=== PATIENT | female | born 1940 | race Caucasian/White ===

== ENCOUNTER 2017-06-09 02:42 | Inpatient (IN) | payer OTHER ==
[2017-06-09] MEDS ORDERED: NS 1,000 ML IV ONE ×3 (02:51→05:19)
[2017-06-09] MEDS ORDERED: ONDANSETRON 4 MG/2 ML VIAL IVP ONE ×2 (02:51→03:38)
--- NOTE | 2017-06-09 02:59 | CPEKG ---
Heart Rate: 58 RR Interval: 1034 P-R Interval: 128 QRSD Interval: 98 QT Interval: 472 QTC Interval: 464 P [place]: 74 QRS [place]: -34 T Wave [place]: 30 EKG Severity - OTHERWISE NORMAL ECG - EKG Impression: SINUS RHYTHM EKG Impression: LEFT AXIS DEVIATION Electronically Signed By: Joaquina Correa 09-Jun-2017 05:26:37
--- NOTE | 2017-06-09 03:00 | EDPHY ---
H & P Stated Complaint: Epigatric, umbilical abdo pain, nausea since 0. Time Seen by Provider: 06/09/17 02:59 HPI/ROS: Chief complaint: Epigastric pain and vomiting History of present illness: This 77-year-old female with past medical history of hyperlipidemia presents to the emergency department tonight complaining of severe epigastric pain which radiates downward to the suprapubic region and through to her mid back since 10:15 p.m. last evening. She states that she felt fine before going to bed at 9:30 p.m.. The pain woke her from her sleep. At onset, she rated the pain at 8/10 and describes it as an ache which is constant but with spasms of more severe pain. She got up and paced the floor and took 4 Tums without significant relief. The pain eventually increased to 10 /10 and she asked her daughter to bring her to the emergency department. She cannot identify any aggravating or alleviating factors. On the way to the emergency department she started vomiting and has vomited approximately 3 times. There is food particles in the emesis. She states she had chicken, asparagus and salad for dinner. No one else got sick. She had a small bowel movement prior to arriving in the emergency department and states she has felt constipated with small caliber stool for the last 3 weeks. She denies lightheadedness, fever, chills, cough, sore throat or ear pain, chest pain, neck pain, jaw pain, or arm pain. She has chronic left shoulder pain due to an old rotator cuff injury and this pain has been worse for the last week. She has an appointment for her shoulder next week. She denies dysuria or hematuria. The patient denies any prior episodes of this sort but she did present to our emergency department on 03/07/2015 with complaints of chest pain. The workup in the emergency department was negative and the patient states that she had a stress echo when she returned to her home state [facility] which was negative. REVIEW OF SYSTEMS: Constitutional: No fever, no chills. Eyes: No discharge. ENT: No sore throat. Respiratory: No cough, no shortness of breath. Cardiac: No chest pain, no palpitations. Gastrointestinal: See HPI. Genitourinary: No hematuria. Musculoskeletal: No calf swelling, muscle aches. Skin: No rashes. +diaphoresis with pain and vomiting. Neurological: No headache. Source: Patient, Family (daughter) Exam Limitations: No limitations - Personal History Current Tetanus/Diphtheria Vaccine: Yes Current Tetanus Diphtheria and Acellular Pertussis (TDAP): Yes Tetanus Vaccine Date: 2015 - Medical/Surgical History PMH: PMH: includes hyperlipidemia. Denies cardiac history. COLONOSCOPY summer showed benign polyps per patient. PSH: Includes appendectomy, tonsillectomy, bilateral total knee replacements. FH: Mother in her 60s from ovarian cancer, father in his late 70s from testicular cancer. No premature coronary artery disease. Allergies to penicillin Medications include atorvastatin, alendronate, biotin, Celexa, vitamin D3, calcium, multivitamin, and magnesium. Hx Asthma: No Hx Chronic Respiratory Disease: No Hx Diabetes: No Hx Cardiac Disease: No Hx Renal Disease: No Hx Cirrhosis: No Hx Alcoholism: No Hx HIV/AIDS: No Hx Splenectomy or Spleen Trauma: No Other PMH: high cholesterol, arthritis, appy, tonsillectomy, left breast biopsies, nose biopsy. - Family History Significant Family History: Cancer - Social History Smoking Status: Never smoked Alcohol Use: None Drug Use: None Additional Social History: Patient denies tobacco products stating she only smoked in high school to be cool, she has occasional wine and her last drink was a couple weeks ago, she denies marijuana or other drug use. She is here visiting her daughter from [place], [place]. Her Primary Care Provider in [place] is Dr. Hi Snyder. - Physical Exam Exam: General Appearance: Alert, moderate to severe distress. Eyes: Pupils equal and round no pallor or injection. ENT, Mouth: Mucous membranes are moist. No pharyngeal erythema or exudate. Respiratory: There are no retractions, lungs are clear to auscultation. Cardiovascular: Regular rate and rhythm. No murmurs, gallops, or rubs. Gastrointestinal: Abdomen is soft, no significant distention. Diffusely tender to palpation, worse in the epigastric region. No pulsatile masses. No guarding or rigidity. Neurological: Awake and alert, sensory and motor exams grossly normal. Skin: Cool and clammy during waves of pain. Musculoskeletal: Neck is supple nontender. No thyromegaly. No JVD. Extremities are symmetrical, full range of motion. No calf pain swelling, warmth , cords or erythema. Psychiatric: Patient is oriented X 3, there is no agitation. DIFFERENTIAL DIAGNOSIS: After history and physical exam differential diagnosis was considered for but not limited to: acute coronary syndrome, AAA, biliary colic, cholecystitis, pancreatitis, bowel obstruction, colitis, gastroenteritis , pyelonephritis Constitutional: Initial Vital Signs Temperature (C) 97.5 F 06/09/17 02:45 Heart Rate 58 L 06/09/17 02:45 Respiratory Rate 20 06/09/17 02:45 Blood Pressure 131/79 H 06/09/17 02:45 O2 Sat (%) 96 06/09/17 02:45 O2 Delivery Mode Room Air Allergies/Adverse Reactions: No Known Allergies Allergy (Unverified 06/09/17 02:52) Home Medications: Medication Instructions Recorded Alendronate Sodium [Fosamax 70 MG 70 mg DAILY 03/07/15 (RX)] Atorvastatin Calcium [Lipitor] 40 mg PO DAILY 03/07/15 Biotin 5,000 mcg PO DAILY 03/07/15 Calcium [HI-ERAN] DAILY 03/07/15 Cholecalciferol Vit D3 [Vitamin D] 1,000 units PO DAILY 03/07/15 Magnesium Oxide [Magnesium] 1 tab DAILY 03/07/15 Multivit with Calcium,Iron,Min 1 tab DAILY 03/07/15 [Multiple Vitamins For Women] Celexa 06/09/17 Medical Decision Making - Diagnostics EKG Interpretation: EKG #1 (0257): NSR, HR 59, LAD. No acute ischemic changes. Similar to EKG dated 03/07/2015. EKG #2 (0438): NSR, HR 62, LAD, baseline artifact. Imaging Results: PA/LAT CXR as read by me: Tortuous aorta, no infiltrate, effusion, pneumothorax , free air. CT Abd/Pelvis w/contrast verbal report by Dr. Chung: Probable low grade small bowel obstruction. Imaging: Discussed imaging studies w/ will call clerk Radiologist (CT Abd/Pelvis), I viewed and interpreted images myself (CXR) ED Course/Re-evaluation: The patient was seen and examined. Vital signs reviewed. Old records reviewed. EKG was performed and showed no acute ischemic changes. CBC showed a slightly elevated white blood cell count. Comprehensive metabolic panel was remarkable only for a slightly low bicarb and elevated glucose. Liver function tests and lipase were normal. Troponin was within normal limits. Lactic acid was elevated at 3.3. UA showed 1+Ketones after fluids. PA and lateral chest x- ray showed no acute abnormality by my read. It was similar to a chest x-ray dated 03/07/15. CT of the abdomen and pelvis with contrast per verbal report showed a probable low grade small bowel obstruction without free air or abscess. No discrete transition point. Please refer to the final dictated report when available. The patient received 2 L of IV fluid. Her pain and nausea were difficult to control. She received 2 doses of Zofran 4 mg IV push. Reglan 5 mg IV push. Fentanyl 25 mcg IV push x2 and morphine 2 mg IV push. She is still having 5/10 abdominal pain. The patient's repeat EKG was similar to her 1st EKG. Repeat troponin was normal. Repeat lactic acid was still elevated but down to 2.4. The patient was discussed with the hospitalist, Dr. Santo. She will be observed on the Med/Surg unit for further evaluation and treatment as indicated. Dr. Santo will consult surgery at his discretion after his evaluation. - Data Points Laboratory Results: Laboratory Results 06/09/17 03:05 06/09/17 03:05 06/09/17 06/09/17 06/09/17 04:28 04:28 04:28 WBC RBC Hgb Hct MCV MCH MCHC RDW Plt Count MPV Neut % (Auto) Lymph % (Auto) Russell % (Auto) Eos % (Auto) Baso % (Auto) Nucleat RBC Rel Count Absolute Neuts (auto) Absolute Lymphs (auto) Absolute Monos (auto) Absolute Eos (auto) Absolute Basos (auto) Absolute Nucleated RBC Immature Gran % Immature Gran # VBG Lactic Acid 2.4 mmol/L H D mmol/L (0.7-2.1) Sodium Potassium Chloride Carbon Dioxide Anion Gap BUN Creatinine Estimated GFR Glucose Calcium Phosphorus Magnesium 1.7 mg/dL mg/dL (1.6-2.3) Total Bilirubin Conjugated Bilirubin Unconjugated Bilirubin AST ALT Alkaline Phosphatase Troponin I < 0.012 ng/mL ng/mL (0.000-0.034) Total Protein Albumin Lipase Urine Color YELLOW Urine Appearance HAZY Urine pH 7.5 (5.0-7.5) Ur Specific [place] 1.010 (1.002-1.030) Urine Protein NEGATIVE (NEGATIVE) Urine Ketones 1+ H (NEGATIVE) Urine Blood TRACE H (NEGATIVE) Urine Nitrate NEGATIVE (NEGATIVE) Urine Bilirubin NEGATIVE (NEGATIVE) Urine Urobilinogen 0.2 EU EU (0.2-1.0) Ur Leukocyte Esterase NEGATIVE (NEGATIVE) Urine RBC NONE SEEN /hpf /hpf (0-3) Urine WBC NONE SEEN /hpf /hpf (0-3) Ur Epithelial Cells NONE SEEN /lpf /lpf (NONE-1+) Urine Mucus TRACE /lpf /lpf (NONE-1+) Urine Glucose NEGATIVE (NEGATIVE) 06/09/17 06/09/17 06/09/17 03:05 03:05 03:05 WBC 12.98 10^3/uL H 10^3/uL (3.80-9.50) RBC 5.32 10^6/uL 10^6/uL (4.18-5.33) Hgb 15.6 g/dL g/dL (12.6-16.3) Hct 44.5 % % (38.0-47.0) MCV 83.6 fL fL (81.5-99.8) MCH 29.3 pg pg (27.9-34.1) MCHC 35.1 g/dL g/dL (32.4-36.7) RDW 12.4 % % (11.5-15.2) Plt Count 250 10^3/uL 10^3/uL (150-400) MPV 9.7 fL fL (8.7-11.7) Neut % (Auto) 83.0 % H % (39.3-74.2) Lymph % (Auto) 11.9 % L % (15.0-45.0) Russell % (Auto) 4.3 % L % (4.5-13.0) Eos % (Auto) 0.3 % L % (0.6-7.6) Baso % (Auto) 0.2 % L % (0.3-1.7) Nucleat RBC Rel Count 0.0 % % (0.0-0.2) Absolute Neuts (auto) 10.76 10^3/uL H 10^3/uL (1.70-6.50) Absolute Lymphs (auto) 1.55 10^3/uL 10^3/uL (1.00-3.00) Absolute Monos (auto) 0.56 10^3/uL 10^3/uL (0.30-0.80) Absolute Eos (auto) 0.04 10^3/uL 10^3/uL (0.03-0.40) Absolute Basos (auto) 0.03 10^3/uL 10^3/uL (0.02-0.10) Absolute Nucleated RBC 0.00 10^3/uL 10^3/uL (0-0.01) Immature Gran % 0.3 % % (0.0-1.1) Immature Gran # 0.04 10^3/uL 10^3/uL (0.00-0.10) VBG Lactic Acid 3.3 mmol/L H mmol/L (0.7-2.1) Sodium 137 mEq/L mEq/L (135-145) Potassium 4.4 mEq/L mEq/L (3.5-5.2) Chloride 101 mEq/L mEq/L (97-110) Carbon Dioxide 21 mEq/l L mEq/l (22-31) Anion Gap 15 mEq/L mEq/L (8-16) BUN 33 mg/dL H mg/dL (7-23) Creatinine 0.9 mg/dL mg/dL (0.6-1.0) Estimated GFR > 60 Glucose 192 mg/dL H mg/dL (70-100) Calcium 10.8 mg/dL H mg/dL (8.5-10.4) Phosphorus 3.0 mg/dL mg/dL (2.5-4.5) Magnesium Total Bilirubin 0.7 mg/dL mg/dL (0.1-1.4) Conjugated Bilirubin 0.3 mg/dL mg/dL (0.0-0.5) Unconjugated Bilirubin 0.4 mg/dL mg/dL (0.0-1.1) AST 23 IU/L IU/L (14-46) ALT 34 IU/L IU/L (9-52) Alkaline Phosphatase 83 IU/L IU/L (38-126) Troponin I < 0.012 ng/mL ng/mL (0.000-0.034) Total Protein 6.9 g/dL g/dL (6.3-8.2) Albumin 4.2 g/dL g/dL (3.5-5.0) Lipase 181 IU/L IU/L (23-300) Urine Color Urine Appearance Urine pH Ur Specific [place] Urine Protein Urine Ketones Urine Blood Urine Nitrate Urine Bilirubin Urine Urobilinogen Ur Leukocyte Esterase Urine RBC Urine WBC Ur Epithelial Cells Urine Mucus Urine Glucose Medications Given: Discontinued Medications Fentanyl (Sublimaze) 25 mcg IVP EDNOW ONE Stop: 06/09/17 03:09 Last Admin: 06/09/17 03:15 Dose: 25 mcg Fentanyl (Sublimaze) 25 mcg IVP EDNOW ONE Stop: 06/09/17 03:35 Last Admin: 06/09/17 03:37 Dose: 25 mcg Sodium Chloride (Ns) 1,000 mls @ 0 mls/hr IV EDNOW ONE; Wide Open PRN Reason: Protocol Stop: 06/09/17 02:52 Last Admin: 06/09/17 03:03 Dose: 1,000 mls Sodium Chloride (Ns) 1,000 mls @ 0 mls/hr IV EDNOW ONE; Wide Open PRN Reason: Protocol Stop: 06/09/17 03:35 Last Admin: 06/09/17 03:37 Dose: 1,000 mls Metoclopramide HCl (Reglan Injection) 5 mg IVP EDNOW ONE Stop: 06/09/17 04:15 Last Admin: 06/09/17 04:33 Dose: 5 mg Morphine Sulfate (Morphine) 2 mg IVP EDNOW ONE Stop: 06/09/17 04:44 Last Admin: 06/09/17 04:53 Dose: Not Given Morphine Sulfate (Morphine) 2 mg IVP EDNOW ONE Stop: 06/09/17 04:52 Last Admin: 06/09/17 04:52 Dose: 2 mg Morphine Sulfate (Morphine) 2 mg IVP EDNOW ONE Stop: 06/09/17 05:11 Last Admin: 06/09/17 05:16 Dose: 2 mg Ondansetron HCl (Zofran) 4 mg IVP EDNOW ONE Stop: 06/09/17 02:52 Last Admin: 06/09/17 03:02 Dose: 4 mg Ondansetron HCl (Zofran) 4 mg IVP EDNOW ONE Stop: 06/09/17 03:39 Last Admin: 06/09/17 03:42 Dose: 4 mg Departure - Departure Disposition: [facility] Inpatient Acute Clinical Impression: Partial small bowel obstruction Condition: Good
[2017-06-09] MEDS ORDERED: fentaNYL 100 MCG/2 ML INJ IVP ONE ×2 (03:08→03:34)
[2017-06-09 03:15] LABS: PLATELET COUNT 250 10^3/uL (150-400)
[2017-06-09] MEDS ORDERED: IOPAMIDOL (ISOVUE-300) 100 ML BTL ONE (03:48)
[2017-06-09] MEDS ORDERED: METOCLOPRAMIDE 10 MG/2 ML VIAL IVP ONE (04:14)
[2017-06-09] MEDS ORDERED: ONDANSETRON DISINTEGRATING 4 MG TAB PO PRN (04:55)
--- NOTE | 2017-06-09 04:55 | CPEKG ---
Heart Rate: 62 RR Interval: 968 P-R Interval: 128 QRSD Interval: 102 QT Interval: 468 QTC Interval: 476 P [place]: 72 QRS [place]: -33 T Wave [place]: 62 EKG Severity - ABNORMAL ECG - EKG Impression: SINUS RHYTHM EKG Impression: LEFT AXIS DEVIATION EKG Impression: NONSPECIFIC T ABNORMALITIES, LATERAL LEADS EKG Impression: Baseline artifact Electronically Signed By: Joaquina Correa 09-Jun-2017 05:26:03
[2017-06-09] MEDS: D5W 1/2 NS 1,000 ML IV SCH ×2 (09:40→18:30)
[2017-06-09] MEDS: ONDANSETRON 4 MG/2 ML VIAL IVP PRN (09:41)
[2017-06-09] MEDS: PROMETHAZINE HCL 25 MG/ML INJ IVP PRN ×3 (10:09→23:07)
[2017-06-09] MEDS: HYDROmorphone HCL/NS 0.5 MG/ML SYR IVP PRN ×2 (10:09→22:59)
[2017-06-09] MEDS ORDERED: NON-FORMULARY NEW DRUG (Loratadine [Claritin] 10 MG) PO PRN (12:44)
--- NOTE | 2017-06-09 14:33 | GHP ---
[f rep st] HISTORY AND PHYSICAL DATE OF ADMISSION: 06/09/2017 The patient is a 77-year-old female with history of remote appendectomy, presents with nausea, vomiti ng, abdominal pain, abdominal distention. She has had some hard, firm bowel movements of late. She had a colonoscopy in the past that was unremarkable other than a couple of polyps. She has not had fever, chills. She has not had cough or shortness of breath. She does not take narc otic pain medicines. She has not had diarrhea. REVIEW OF SYSTEMS: Complete 10-point review of systems conducted negative except as noted in the HPI . PAST MEDICAL HISTORY: 1. Hyperlipidemia. 2. Osteoporosis. 3. Rotator cuff tear. 4. Remote appendectomy. 5. Episode of chest pain for which she had a negative stress echo. ALLERGIES: Penicillins. HOME MEDICATIONS: Alendronate, atorvastatin, calcium carbonate, celecoxib, citalopram, loratadine, m ultivitamin. SOCIAL HISTORY: No tobacco, no alcohol. Lives in [place], his daughter lives here. FAMILY HISTORY: Parents . PHYSICAL EXAMINATION: VITAL SIGNS: Temp 36.8, blood pressure 152/89, pulse 81, breathing 16 times a minute, 95% on 2 L. GENERAL: No acute distress. HEENT: Sclerae anicteric. Oropharynx clear. Mu cous membranes moist. NECK: Supple without lymphadenopathy or JVD. LUNGS: Clear to auscultation b ilaterally. HEART: S1, S2. ABDOMEN: Soft. Bowel sounds are present but hypoactive, mildly disten ded. There is no rebound or guarding. EXTREMITIES: Lower extremities without edema, calves are non tender. SKIN: Without rash. NEUROLOGIC: Exam is nonfocal. LABORATORY DATA: White count 13, hematocrit 45, platelets are 250,000. Venous lactate was 3.3, now 2.4. Sodium 137, potassium 4.1, chloride 101, bicarb 21, BUN 33, creatinine 0.9, glucose 192. Tropo joann less than 0.012 x 2. LFTs normal. UA is reviewed and unremarkable. CT shows possible small bowel obstruction with diverticulosis. Chest x-ray interpreted by me shows no acute cardiopulmonary disease. EKG interpreted by me shows sinus at 58 with normal with left axis deviation, normal intervals, no ST or T-wave changes. I have discussed the case with Dr. Correa of urgent care. ASSESSMENT/PLAN: A 77-year-old female with likely partial small-bowel obstruction. 1. Small bowel obstruction. The patient has probably a partial small-bowel obstruction. She has an exam consistent with this. We will go ahead and follow. We will provide her with n.p.o. except for sips and antiemetics. I do not think she needs an NG tube at this time. 2. Adrenal adenoma outpatient followup. 3. Vomiting. I do not think this is consistent with ACS. She has nonischemic EKG and negative trop onin. 4. Prophylaxis low molecular weight heparin is indicated. 5. Pain. Cautious narcotics. 6. Disposition inpatient. /[id number]/MODL
[2017-06-09] MEDS: CETIRIZINE 10 MG TAB PO SCH (18:31)
[2017-06-10] MEDS: HYDROmorphone HCL/NS 0.5 MG/ML SYR IVP PRN ×5 (02:22→19:09)
[2017-06-10] MEDS: ONDANSETRON 4 MG/2 ML VIAL IVP PRN ×4 (02:30→16:31)
[2017-06-10] MEDS ORDERED: ALENDRONATE SODIUM 70 MG TAB PO SCH (07:00)
[2017-06-10] MEDS: CALCIUM CARBONATE 500 MG TAB PO SCH (09:11)
[2017-06-10] MEDS: CETIRIZINE 10 MG TAB PO SCH (09:12)
[2017-06-10] MEDS: MULTIVITAMINS 1 EACH TAB PO SCH (09:12)
[2017-06-10] MEDS: ENOXAPARIN 40 MG/0.4 ML SYR SC SCH (09:16)
[2017-06-10] MEDS: PROMETHAZINE HCL 25 MG/ML INJ IVP PRN ×2 (09:17→15:19)
[2017-06-10] MEDS: CITALOPRAM 20 MG TAB PO SCH (13:15)
[2017-06-10] MEDS: ATORVASTATIN CALCIUM 40 MG TAB PO SCH (13:16)
--- NOTE | 2017-06-10 13:36 | HOSPPROG ---
Hospitalist Progress Note Assessment/Plan: New pt encounter 77 yo female with SBO, conservative mgmt #SBO -conservative mgmt -NPO, Ice chips, sips of water -NGT -improving conservatively #N/V -antiemetics #abd pain, improving #Hx of open appendectomy at age 10 #Left Adrenal Adenoma per CT imaging, will rec repeat CT scan in 6 months per Radiology Plan: cont conservative mgt will change IVF to NS given Na was 136. check labs in a.m await further improvement prior to advancing diet repeat lactic acid pain mgmt Lovenox for DVT proph Subjective: abd feels better. Still no flatus. NGT in. Objective: Vital Signs Temp Pulse Resp BP Pulse Ox 36.8 C 104 H 17 149/90 H 95 06/10/17 11:50 06/10/17 11:50 06/10/17 11:50 06/10/17 11:50 06/10/17 11:50 06/09/17 06/10/17 06/11/17 05:59 05:59 05:59 Intake Total 3590 1900 Output Total 2475 450 Balance 1115 1450 - Physical Exam Constitutional: no apparent distress Eyes: PERRL, EOMI Ears, Nose, Mouth, Throat: moist mucous membranes, hearing normal Cardiovascular: regular rate and rhythym, no murmur, rub, or gallop, No edema Respiratory: no respiratory distress, no rales or rhonchi, clear to auscultation Gastrointestinal: distension (mild), other (RLQ TTP, hypoactive BS) Genitourinary: no bladder fullness Skin: warm Neurologic: AAOx3 Psychiatric: interacting appropriately, not anxious, not encephalopathic Lymph, Heme, Immunologic: No petechiae ICD10 Worksheet Patient Problems: Problems Problem Status Onset Partial small bowel obstruction Acute
[2017-06-10] MEDS: D5W NS 1,000 ML IV SCH (14:27)
--- NOTE | 2017-06-10 15:57 | ASMTCMCOM ---
CM Note CM Note Notes: Pt is for SBO, is currently NPO. Pt lives in [place]. dghtr lives here and has been bedside. No therapies ordered. CM will follow pt progress for d/c planning. Date Signed: 06/10/2017 03:56 PM Electronically Signed By:HEATHER De La Rosa
--- NOTE | 2017-06-10 16:11 | PDMN ---
Medical Necessity Medical necessity: Change to IP, as of 06/10/17, per MD; los >2 mn for ongoing management of SBO; NG tube in place; admit for further monitoring/workup, IVFs, pain management & antiemetics; per progress note & order 06/10/17
[2017-06-10] MEDS ORDERED: LORazepam 2 MG/ML INJ IVP ONE (18:00)
[2017-06-11 05:02] LABS: PLATELET COUNT 189 10^3/uL (150-400)
[2017-06-11] MEDS: CALCIUM CARBONATE 500 MG TAB PO SCH (08:47)
[2017-06-11] MEDS: CETIRIZINE 10 MG TAB PO SCH (08:48)
[2017-06-11] MEDS: MULTIVITAMINS 1 EACH TAB PO SCH (08:48)
[2017-06-11] MEDS: CITALOPRAM 20 MG TAB PO SCH (08:48)
[2017-06-11] MEDS: ATORVASTATIN CALCIUM 40 MG TAB PO SCH (08:50)
[2017-06-11] MEDS: ENOXAPARIN 40 MG/0.4 ML SYR SC SCH (09:23)
[2017-06-11] MEDS: D5W NS 1,000 ML IV SCH ×2 (10:21→22:31)
--- NOTE | 2017-06-11 14:15 | HOSPPROG ---
Hospitalist Progress Note Assessment/Plan: 77 yo female with SBO, conservative mgmt #SBO, improving -conservative mgmt -NPO, Ice chips, sips of water -NGT clamped -improving conservatively #Leukocytosis, afebrile #Tachycardia, stable #N/V -antiemetics #abd pain, improving #Hx of open appendectomy at age 10 #Left Adrenal Adenoma per CT imaging, will rec repeat CT scan in 6 months per Radiology Plan: cont conservative mgt. she is improving. BS are better. NG is clamped. Abd is not distended. cont NS at 100ml/hr, no e/o of swelling or volume overload check labs in a.m, unclear why she has Leukocytosis. She feels better. she is afebrile. await further improvement prior to advancing diet check KUB pain mgmt Lovenox for DVT proph Subjective: feels better. ambulating in lambert. no flatus yet. NGT is clamped. afebrile Objective: Vital Signs Temp Pulse Resp BP Pulse Ox 36.8 C 104 H 18 126/93 H 92 06/11/17 11:55 06/11/17 11:55 06/11/17 11:55 06/11/17 11:55 06/11/17 11:55 Laboratory Results 06/11/17 04:46 06/11/17 04:46 06/10/17 06/11/17 06/12/17 05:59 05:59 05:59 Intake Total 1200 Output Total 600 200 Balance -600 1000 - Physical Exam Constitutional: no apparent distress Eyes: PERRL, EOMI Ears, Nose, Mouth, Throat: moist mucous membranes Cardiovascular: regular rate and rhythym, no murmur, rub, or gallop, No edema Respiratory: no respiratory distress, no rales or rhonchi, clear to auscultation Gastrointestinal: normoactive bowel sounds, soft, non-tender abdomen Skin: warm Neurologic: AAOx3 Psychiatric: interacting appropriately, not anxious, not encephalopathic, thought process linear Lymph, Heme, Immunologic: No petechiae ICD10 Worksheet Patient Problems: Problems Problem Status Onset Partial small bowel obstruction Acute
[2017-06-12 04:51] LABS: PLATELET COUNT 163 10^3/uL (150-400)
[2017-06-12] MEDS: CALCIUM CARBONATE 500 MG TAB PO SCH (09:19)
[2017-06-12] MEDS: CETIRIZINE 10 MG TAB PO SCH (09:19)
[2017-06-12] MEDS: ATORVASTATIN CALCIUM 40 MG TAB PO SCH (09:20)
[2017-06-12] MEDS: MULTIVITAMINS 1 EACH TAB PO SCH (09:20)
[2017-06-12] MEDS: CITALOPRAM 20 MG TAB PO SCH (09:20)
[2017-06-12] MEDS: ENOXAPARIN 40 MG/0.4 ML SYR SC SCH (09:26)
--- NOTE | 2017-06-12 11:33 | HOSPPROG ---
Hospitalist Progress Note Assessment/Plan: 77 yo female with SBO, conservative mgmt, improving #SBO, improving -conservative mgmt -cont Clears. Consider advancing tomorrow. Abd is still distended and has hypoactive BS -NGT can be removed today #Leukocytosis, afebrile, improving, no s/o infection. recheck in a.m. #Tachycardia, stable, mild, will cont to monitor #N/V -antiemetics #abd pain, improving #Hx of open appendectomy at age 10 #Left Adrenal Adenoma per CT imaging, will rec repeat CT scan in 6 months per Radiology Plan: cont conservative mgt Decrease fluids to 75 ml /hr cont Clears repeat KUB in a.m. can hopefully advance diet and consider d/c tomorrow check KUB pain mgmt Lovenox for DVT proph Subjective: had BM last night. one this morning as well. abd is still somewhat distended. Feels better. Objective: Vital Signs Temp Pulse Resp BP Pulse Ox 36.7 C 96 16 139/92 H 90 L 06/12/17 11:29 06/12/17 11:29 06/12/17 11:29 06/12/17 11:29 06/12/17 11:29 Laboratory Results 06/12/17 04:11 06/11/17 04:46 06/11/17 06/12/17 06/13/17 05:59 05:59 05:59 Intake Total 3880 250 Output Total 600 1650 700 Balance -600 2230 -450 - Physical Exam Constitutional: no apparent distress Eyes: PERRL, EOMI Ears, Nose, Mouth, Throat: moist mucous membranes, hearing normal Cardiovascular: regular rate and rhythym, No edema Respiratory: no respiratory distress, no rales or rhonchi, clear to auscultation Gastrointestinal: distension (mild), No normoactive bowel sounds (hypoactive), No guarding, No rebound Genitourinary: no bladder fullness Skin: warm Neurologic: AAOx3 Psychiatric: interacting appropriately, not anxious, not encephalopathic Lymph, Heme, Immunologic: No petechiae ICD10 Worksheet Patient Problems: Problems Problem Status Onset Partial small bowel obstruction Acute
[2017-06-12] MEDS: SODIUM CL NASAL 45 ML BTL EACHNARE PRN ×2 (13:44→18:02)
[2017-06-12] MEDS: POTASSIUM Cl (KCl) 20 MEQ in 1/2 NS 1,000 ML IV SCH (13:45)
[2017-06-12] MEDS ORDERED: METOCLOPRAMIDE 10 MG/2 ML VIAL IVP PRN (17:35)
[2017-06-12] MEDS ORDERED: METOCLOPRAMIDE 10 MG TAB PO PRN (17:35)
[2017-06-12] MEDS: ACETAMINOPHEN 325 MG TAB PO PRN (19:20)
[2017-06-13] MEDS: POTASSIUM Cl (KCl) 20 MEQ in 1/2 NS 1,000 ML IV SCH ×2 (04:57→23:35)
[2017-06-13] MEDS: ACETAMINOPHEN 325 MG TAB PO PRN (05:05)
[2017-06-13 05:29] LABS: PLATELET COUNT 163 10^3/uL (150-400)
[2017-06-13] MEDS: CALCIUM CARBONATE 500 MG TAB PO SCH (09:33)
[2017-06-13] MEDS: MULTIVITAMINS 1 EACH TAB PO SCH (09:33)
[2017-06-13] MEDS: CITALOPRAM 20 MG TAB PO SCH (09:33)
[2017-06-13] MEDS: CETIRIZINE 10 MG TAB PO SCH (09:35)
[2017-06-13] MEDS: ENOXAPARIN 40 MG/0.4 ML SYR SC SCH (14:05)
[2017-06-13] MEDS: ATORVASTATIN CALCIUM 40 MG TAB PO SCH (14:05)
--- NOTE | 2017-06-13 14:41 | HOSPPROG ---
Hospitalist Progress Note Assessment/Plan: 77 yo female with SBO, conservative mgmt, improving # SBO- abdominal x-ray(personally reviewed and interpreted) worsening obstruction- patient passed small stool this a.m. Reports abdominal discomfort mildly improved today- oxygen saturations 90% on room air -conservative mgmt -cont Clears -if does not continue to improve may need to replace NGT #Leukocytosis- WBC 18-> 10 remains afebrile - recheck in a.m. # Tachycardia, stable, mild, will cont to monitor - continue IVF # N/V- improved -continue p.r.n. antiemetics # Hx of open appendectomy at age 10 # Left Adrenal Adenoma per CT imaging, will rec repeat CT scan in 6 months per Radiology # Diet NPO # prophylaxis Lovenox # disposition greater than 2 midnights as the patient requires ongoing care for small bowel obstruction Discussed the case with the RN- imaging does not show improvement will continue conservative management Subjective: Pain slightly improved Objective: Vital Signs Temp Pulse Resp BP Pulse Ox 36.8 C 93 16 121/81 H 90 L 06/13/17 11:57 06/13/17 11:57 06/13/17 11:57 06/13/17 11:57 06/13/17 11:57 Laboratory Results 06/13/17 04:51 06/11/17 04:46 06/12/17 06/13/17 06/14/17 05:59 05:59 05:59 Intake Total 3880 1750 800 Output Total 1650 1600 1100 Balance 2230 150 -300 - Physical Exam Constitutional: appears nourished Eyes: anicteric sclera Ears, Nose, Mouth, Throat: moist mucous membranes Cardiovascular: regular rate and rhythym, tachycardia Respiratory: no respiratory distress Gastrointestinal: distension, No normoactive bowel sounds, No guarding, No rebound Genitourinary: no bladder fullness Skin: warm Musculoskeletal: No asymmetric calves Neurologic: AAOx3 Psychiatric: interacting appropriately Lymph, Heme, Immunologic: no cervical LAD ICD10 Worksheet Patient Problems: Problems Problem Status Onset Partial small bowel obstruction Acute
--- NOTE | 2017-06-13 14:49 | ASMTCMCOM ---
CM Note CM Note Notes: Anticipate pt will d/c when medically stable. No CM d/c needs identified at this time. CM available for changes/needs. Date Signed: 06/13/2017 02:48 PM Electronically Signed By:HEATHER De La Rosa
[2017-06-14] MEDS ORDERED: PROTOCOL POTASSIUM 1 DOSE MISC PRN (08:37)
[2017-06-14] MEDS ORDERED: POTASSIUM CL 10 MEQ TAB PO ONE ×2 (08:54→18:40)
[2017-06-14] MEDS: CITALOPRAM 20 MG TAB PO SCH (09:42)
[2017-06-14] MEDS: CALCIUM CARBONATE 500 MG TAB PO SCH (09:43)
[2017-06-14] MEDS: MULTIVITAMINS 1 EACH TAB PO SCH (09:44)
[2017-06-14] MEDS: CETIRIZINE 10 MG TAB PO SCH (09:44)
--- NOTE | 2017-06-14 13:04 | SOAPPROG ---
SOAP Progress Note Assessment/Plan: Assessment/Plan: full consult note to follow 77yo F admitted with SBO Having BMs, passing flatus today Abdominal pain No nausea or vomiting Distended Bowel sounds present No rebound or guarding. No peritoneal signs SBFT - gastrograffin challenge Seen with Dr. Hunter. 06/14/17 19:25 Objective: Vital Signs Temp Pulse Resp BP Pulse Ox 36.8 C 84 16 135/89 H 94 06/14/17 08:00 06/14/17 08:00 06/14/17 08:00 06/14/17 08:00 06/14/17 08:00 Laboratory Results 06/14/17 04:54 06/14/17 04:54 06/13/17 06/14/17 06/15/17 05:59 05:59 05:59 Intake Total 1750 1400 1430 Output Total 1600 1800 450 Balance 150 -400 980 ICD10 Worksheet Patient Problems: Problems Problem Status Onset Partial small bowel obstruction Acute
[2017-06-14] MEDS: ENOXAPARIN 40 MG/0.4 ML SYR SC SCH (13:59)
[2017-06-14] MEDS: ATORVASTATIN CALCIUM 40 MG TAB PO SCH (14:01)
[2017-06-14] MEDS: POTASSIUM Cl (KCl) 20 MEQ in 1/2 NS 1,000 ML IV SCH (14:01)
--- NOTE | 2017-06-14 15:08 | HOSPPROG ---
Hospitalist Progress Note Assessment/Plan: 77 yo female with SBO, conservative mgmt, improving # SBO- abdominal x-ray (personally reviewed and interpreted) worsening obstruction- patient passed small stool and some flatus Reports abdominal discomfort worsened- oxygen saturations 90% on room air -consulting surgery as little to no improvement -NPO -will discuss NGT with surgery #Leukocytosis- WBC 18-> 8 remains afebrile - follow daily # Tachycardia, stable- intermittent will cont to monitor - continue IVF # N/V- improved -continue p.r.n. antiemetics # Hx of open appendectomy at age 10 # Left Adrenal Adenoma per CT imaging, will rec repeat CT scan in 6 months per Radiology # Diet NPO # prophylaxis Lovenox # disposition greater than 2 midnights as the patient requires ongoing care for small bowel obstruction Discussed the case with the RN- will consult surgery for further management recs Subjective: distention feels worse and pain worse Objective: Vital Signs Temp Pulse Resp BP Pulse Ox 36.8 C 84 16 135/89 H 94 06/14/17 08:00 06/14/17 08:00 06/14/17 08:00 06/14/17 08:00 06/14/17 08:00 Laboratory Results 06/14/17 04:54 06/14/17 04:54 06/13/17 06/14/17 06/15/17 05:59 05:59 05:59 Intake Total 1750 1400 1430 Output Total 1600 1800 450 Balance 150 -400 980 - Physical Exam Constitutional: no apparent distress Eyes: anicteric sclera Ears, Nose, Mouth, Throat: moist mucous membranes Cardiovascular: regular rate and rhythym Respiratory: no respiratory distress Gastrointestinal: No normoactive bowel sounds Genitourinary: no bladder fullness Skin: warm Musculoskeletal: No asymmetric calves Neurologic: AAOx3 Psychiatric: interacting appropriately Lymph, Heme, Immunologic: no cervical LAD ICD10 Worksheet Patient Problems: Problems Problem Status Onset Partial small bowel obstruction Acute
[2017-06-15] MEDS: ACETAMINOPHEN 325 MG TAB PO PRN (00:06)
[2017-06-15] MEDS: POTASSIUM Cl (KCl) 20 MEQ in 1/2 NS 1,000 ML IV SCH ×2 (04:52→18:35)
--- NOTE | 2017-06-15 06:06 | GCON ---
[f rep st] CONSULTATION DATE OF CONSULTATION: 06/14/2017 REASON FOR CONSULTATION: Persistent small bowel obstruction. HISTORY OF PRESENT ILLNESS: The patient is a 77-year-old woman who was admitted to the hospital with abdominal pain, nausea and vomiting, as well as abdominal distention. She was found to have a small bowel obstruction on CT scan, possible closed loop. She did not require NG tube decompression. Today on interview, she reports passing flatus. She is also having bowel movements. She still feels distended, however, this is slightly improved. She is tolerating clear liquids in very small amounts. Her only abdominal past surgical history included an appendectomy. A repeat abdominal x-ray this morning showed partial small bowel obstruction, which has worsened. PAST MEDICAL HISTORY: Hyperlipidemia, osteoporosis. ALLERGIES: Penicillin. SOCIAL HISTORY: She denies tobacco, alcohol or recreational drug use. She is currently staying with her daughter. FAMILY HISTORY: Reviewed and noncontributory. REVIEW OF SYSTEMS: A 10-point review of systems is negative aside from HPI. PHYSICAL EXAMINATION: GENERAL: Well-developed, well-nourished woman in no acute distress accompanied by daughter. HEENT: Normocephalic, atraumatic. No hearing deficits. Pupils equal and round. No scleral icterus. Mucous membranes moist. RESPIRATORY: Clear to auscultation bilaterally. No increased work of breathing. CARDIOVASCULAR: Regular rate and rhythm. No peripheral edema. ABDOMEN: Soft but distended. Bowel sounds are present throughout. She is nontender to light or deep palpation. No rebound or guarding. No peritoneal signs. PSYCH: Mood and affect normal. NEURO: Grossly intact. RESULTS REVIEWED: I personally reviewed her Abdominal CT and her abdominal x rays which shows a partial small bowel obstruction. I also discussed the case with Dr. Patiño IMPRESSION AND PLAN: A 77-year-old woman with a persistent small bowel obstruction. We have put an order in for a Gastrografin challenge test. This will include taking in 100 mL of Gastrografin mixed with 50 mL of water in approximately 8 hours. We will have a small bowel follow-through performed. If the patient has contrast in the colon at the time of the x-ray or has a bowel movement in the interim, then the test is considered negative. However, if there is no contrast in the colon, she will likely require surgery. We will check back in with the patient later this afternoon. She may continue on clear liquids as tolerated. We will continue to follow this patient through her hospital stay. I personally evaluated the patient, examined the patient and Georgia Schmid PA-C acted as scribe /[id number]/MODL MTDD
[2017-06-15] MEDS ORDERED: POTASSIUM CL 10 MEQ TAB PO ONE (07:43)
--- NOTE | 2017-06-15 08:49 | SOAPPROG ---
SOAP Progress Note Assessment/Plan: Assessment/Plan: 77yo F admitted with SBO Gastrograffin challenge yesterday with contrast in colon Having BMs, passing flatus Continue clear liquids Continue conservative management. Hopeful to avoid surgery Seen with Dr. Hunter. S: No nausea or vomiting. Still having discomfort and distension. Having bowel movements this morning O: WDWN woman NAD No increased WOB Bowel sounds present, Very soft. Slightly distended. No rebound or guarding. No peritoneal signs Objective: Vital Signs Temp Pulse Resp BP Pulse Ox 36.5 C 92 18 158/86 H 96 06/15/17 07:56 06/15/17 07:56 06/15/17 07:56 06/15/17 07:56 06/15/17 07:56 Laboratory Results 06/15/17 05:07 06/15/17 05:07 06/14/17 06/15/17 06/16/17 05:59 05:59 05:59 Intake Total 1400 3030 700 Output Total 1800 1527 Balance -400 1503 700 ICD10 Worksheet Patient Problems: Problems Problem Status Onset Partial small bowel obstruction Acute
[2017-06-15] MEDS: CALCIUM CARBONATE 500 MG TAB PO SCH (09:26)
[2017-06-15] MEDS: MULTIVITAMINS 1 EACH TAB PO SCH (09:26)
[2017-06-15] MEDS: CITALOPRAM 20 MG TAB PO SCH (09:26)
[2017-06-15] MEDS: CETIRIZINE 10 MG TAB PO SCH (09:27)
[2017-06-15] MEDS: ENOXAPARIN 40 MG/0.4 ML SYR SC SCH (09:30)
--- NOTE | 2017-06-15 11:13 | HOSPPROG ---
Hospitalist Progress Note Assessment/Plan: * Partial SBO -continue conservative mgmt -surgery following -clear liquids * Open appy age 10 * Left adrenal adenoma -outpatient follow-up - repeat CT 6 months * Hyperlipidemia -continue statin Subjective: Diarrhea this am, tolerating clears, still pain/distension however Objective: Vital Signs Temp Pulse Resp BP Pulse Ox 36.5 C 92 18 158/86 H 96 06/15/17 07:56 06/15/17 07:56 06/15/17 07:56 06/15/17 07:56 06/15/17 07:56 Laboratory Results 06/15/17 05:07 06/15/17 05:07 06/14/17 06/15/17 06/16/17 05:59 05:59 05:59 Intake Total 1400 3030 700 Output Total 1800 1527 Balance -[address] abd pelvis - c/w SBO AXR - some contrast to colon CXR viewed, my personal interpretation is - negative - Physical Exam Constitutional: no apparent distress, appears nourished, not in pain Cardiovascular: regular rate and rhythym, no murmur, rub, or gallop Respiratory: no respiratory distress, no rales or rhonchi, clear to auscultation Gastrointestinal: soft, non-tender abdomen, no palpable masses, distension, No tenderness, No ascites, No hepatosplenomegally, No guarding, No rebound Skin: no rashes or abrasions, no fluctuance, no induration Neurologic: AAOx3, sensation intact bilaterally Psychiatric: interacting appropriately, not anxious, not encephalopathic, thought process linear ICD10 Worksheet Patient Problems: Problems Problem Status Onset Partial small bowel obstruction Acute
[2017-06-15] MEDS: ATORVASTATIN CALCIUM 40 MG TAB PO SCH (12:42)
[2017-06-16] MEDS: MULTIVITAMINS 1 EACH TAB PO SCH (09:10)
[2017-06-16] MEDS: ENOXAPARIN 40 MG/0.4 ML SYR SC SCH (09:10)
[2017-06-16] MEDS: CALCIUM CARBONATE 500 MG TAB PO SCH (09:10)
[2017-06-16] MEDS: CITALOPRAM 20 MG TAB PO SCH (09:10)
[2017-06-16] MEDS: CETIRIZINE 10 MG TAB PO SCH (09:11)
--- NOTE | 2017-06-16 10:45 | ASMTCMCOM ---
CM Note CM Note Notes: Spoke w/RN, pt still on clear liquid diet but anticipates she will dc independent. Pt here visiting her daughter, will return to [place] when medically stable, CM available for any changes. DC Plan: Independent Date Signed: 06/16/2017 10:44 AM Electronically Signed By:Tatum Shrestha RN
--- NOTE | 2017-06-16 11:03 | SOAPPROG ---
SOAP Progress Note Assessment/Plan: Assessment: 77 yo with partial SBO No issues with gastrograffin challenge Some loose stool No gas per rectum Can slowly advance diet Hoping distension will improve over next 24 hours If fails then maybe laparoscopy on Fri or Sat S: Feeling better. No n/v O: Abdomen is softer today but still with marked distension. Plan: 06/16/17 11:01 Objective: Vital Signs Temp Pulse Resp BP Pulse Ox 36.8 C 94 18 142/93 H 92 06/16/17 07:26 06/16/17 07:26 06/16/17 07:26 06/16/17 07:26 06/16/17 09:29 Laboratory Results 06/15/17 05:07 06/16/17 04:30 06/15/17 06/16/17 06/17/17 05:59 05:59 05:59 Intake Total 3030 2050 Output Total 1527 400 Balance 1503 1650 ICD10 Worksheet Patient Problems: Problems Problem Status Onset Partial small bowel obstruction Acute
[2017-06-16] MEDS: ATORVASTATIN CALCIUM 40 MG TAB PO SCH (13:14)
--- NOTE | 2017-06-16 16:39 | HOSPPROG ---
Hospitalist Progress Note Assessment/Plan: * Partial SBO -continue conservative mgmt -clear liquids -slow to improve - may need OR in 1-2 days if continues slow progress * Open appy age 10 * Left adrenal adenoma -outpatient follow-up - repeat CT 6 months * Hyperlipidemia -continue statin Subjective: Tolerating clears, still very distended without flatus however Objective: Vital Signs Temp Pulse Resp BP Pulse Ox 37.3 C 98 18 154/93 H 92 06/16/17 15:44 06/16/17 15:44 06/16/17 15:44 06/16/17 15:44 06/16/17 15:44 Laboratory Results 06/15/17 05:07 06/16/17 04:30 06/15/17 06/16/17 06/17/17 05:59 05:59 05:59 Intake Total 3030 2050 300 Output Total 1527 400 Balance 1503 1650 300 - Physical Exam Constitutional: no apparent distress, appears nourished, not in pain Cardiovascular: regular rate and rhythym, no murmur, rub, or gallop Respiratory: no respiratory distress, no rales or rhonchi, clear to auscultation Gastrointestinal: normoactive bowel sounds, soft, non-tender abdomen, no palpable masses Skin: no rashes or abrasions, no fluctuance, no induration Neurologic: AAOx3, sensation intact bilaterally Psychiatric: interacting appropriately, not anxious, not encephalopathic, thought process linear ICD10 Worksheet Patient Problems: Problems Problem Status Onset Partial small bowel obstruction Acute
[2017-06-17 04:39] LABS: PLATELET COUNT 270 10^3/uL (150-400)
[2017-06-17] MEDS ORDERED: POTASSIUM CL 10 MEQ TAB PO ONE ×2 (08:44→19:42)
[2017-06-17] MEDS: SODIUM CL NASAL 45 ML BTL EACHNARE PRN ×4 (08:49→20:50)
[2017-06-17] MEDS: CETIRIZINE 10 MG TAB PO SCH (08:50)
[2017-06-17] MEDS: ENOXAPARIN 40 MG/0.4 ML SYR SC SCH (08:50)
[2017-06-17] MEDS: CALCIUM CARBONATE 500 MG TAB PO SCH (08:50)
[2017-06-17] MEDS: CITALOPRAM 20 MG TAB PO SCH (08:50)
[2017-06-17] MEDS: MULTIVITAMINS 1 EACH TAB PO SCH (08:51)
[2017-06-17] MEDS: DICYCLOMINE 10 MG CAP PO SCH ×3 (12:09→22:06)
[2017-06-17] MEDS: ATORVASTATIN CALCIUM 40 MG TAB PO SCH (12:09)
--- NOTE | 2017-06-17 14:03 | HOSPPROG ---
Hospitalist Progress Note Assessment/Plan: * Partial SBO -continue conservative mgmt - improving -tolerating clear liquids - consider advance diet - defer to surgery * Open appy age 10 * Left adrenal adenoma -outpatient follow-up - repeat CT 6 months * Hyperlipidemia -continue statin Subjective: Passing lots of gas and had formed BM last night Objective: Vital Signs Temp Pulse Resp BP Pulse Ox 36.6 C 99 16 156/92 H 93 06/17/17 07:45 06/17/17 07:45 06/17/17 07:45 06/17/17 07:45 06/17/17 07:45 Laboratory Results 06/17/17 04:25 06/17/17 04:25 06/16/17 06/17/17 06/18/17 05:59 05:59 05:59 Intake Total 2050 550 Output Total 400 Balance 1650 550 - Physical Exam Cardiovascular: regular rate and rhythym, no murmur, rub, or gallop Respiratory: no respiratory distress, no rales or rhonchi, clear to auscultation Gastrointestinal: distension, No tenderness, No ascites, No guarding, No rebound Skin: no rashes or abrasions, no fluctuance, no induration Neurologic: AAOx3, sensation intact bilaterally Psychiatric: interacting appropriately, not anxious, not encephalopathic, thought process linear ICD10 Worksheet Patient Problems: Problems Problem Status Onset Partial small bowel obstruction Acute
--- NOTE | 2017-06-17 17:26 | SOAPPROG ---
SOAP Progress Note Assessment/Plan: Assessment/Plan: 77yo F admitted with SBO Continues to have distention, but passing flatus and having bowel movements Tolerating clear liquids Advance diet as tolerated Gas pains- will add Bentyl and heating pack Encouraged ambulation Continue conservative management. Hopeful to avoid surgery Case discussed with Dr. Hunter. S: No nausea or vomiting. Still having distension in gas pains today. Having bowel movements and passing flatus O: WDWN woman NAD No increased WOB Bowel sounds present, Very soft. Slightly distended. No rebound or guarding. No peritoneal signs Objective: Vital Signs Temp Pulse Resp BP Pulse Ox 36.4 C 106 H 16 126/94 H 92 06/17/17 15:09 06/17/17 15:09 06/17/17 15:09 06/17/17 15:09 06/17/17 15:09 Laboratory Results 06/17/17 04:25 06/17/17 04:25 06/16/17 06/17/17 06/18/17 05:59 05:59 05:59 Intake Total 2050 550 500 Output Total 400 Balance 1650 550 500 ICD10 Worksheet Patient Problems: Problems Problem Status Onset Partial small bowel obstruction Acute
[2017-06-18] MEDS: DICYCLOMINE 10 MG CAP PO SCH ×4 (05:13→20:19)
[2017-06-18] MEDS: oxyCODONE IR 5 MG TAB PO PRN ×2 (05:16→11:11)
[2017-06-18] MEDS: CALCIUM CARBONATE 500 MG TAB PO SCH (09:37)
[2017-06-18] MEDS: ENOXAPARIN 40 MG/0.4 ML SYR SC SCH (09:37)
[2017-06-18] MEDS: CETIRIZINE 10 MG TAB PO SCH (09:37)
[2017-06-18] MEDS: CITALOPRAM 20 MG TAB PO SCH (09:37)
[2017-06-18] MEDS: MULTIVITAMINS 1 EACH TAB PO SCH (09:37)
[2017-06-18] MEDS ORDERED: POTASSIUM CL 10 MEQ TAB PO ONE ×2 (09:43→20:52)
[2017-06-18] MEDS: ATORVASTATIN CALCIUM 40 MG TAB PO SCH (11:32)
--- NOTE | 2017-06-18 15:39 | SOAPPROG ---
SOAP Progress Note Assessment/Plan: Assessment: 77 yo with partial SBO Gastrograffin went through to colon but has persistent dilated loops of small bowel and unable to tolerate food Will go to OR for laparoscopy possible laparotomy ? Adhesion S: [place] terrible after eating. More distended and more pain in upper abdomen O: Distended but soft. Bowel sounds less active Plan: 06/16/17 11:01 06/18/17 15:37 Objective: Vital Signs Temp Pulse Resp BP Pulse Ox 36.7 C 94 16 144/81 H 91 L 06/18/17 15:02 06/18/17 15:02 06/18/17 15:02 06/18/17 15:02 06/18/17 15:02 Laboratory Results 06/17/17 04:25 06/17/17 04:25 06/17/17 06/18/17 06/19/17 05:59 05:59 05:59 Intake Total 550 1500 Balance 550 1500 ICD10 Worksheet Patient Problems: Problems Problem Status Onset Partial small bowel obstruction Acute
--- NOTE | 2017-06-18 16:30 | HOSPPROG ---
Hospitalist Progress Note Assessment/Plan: * Partial SBO -failed conservative management - to OR in am * Open appy age 10 * Left adrenal adenoma -outpatient follow-up - repeat CT 6 months * Hyperlipidemia -continue statin Subjective: Ate solids last night and developed worsening pain Objective: Vital Signs Temp Pulse Resp BP Pulse Ox 36.7 C 94 16 144/81 H 91 L 06/18/17 15:02 06/18/17 15:02 06/18/17 15:02 06/18/17 15:02 06/18/17 15:02 Laboratory Results 06/17/17 04:25 06/17/17 04:25 06/17/17 06/18/17 06/19/17 05:59 05:59 05:59 Intake Total 550 1500 Balance 550 1500 AXR - persistent SBO d/w Dr. Hunter - to OR in am - Physical Exam Constitutional: no apparent distress, appears nourished, not in pain Cardiovascular: regular rate and rhythym, no murmur, rub, or gallop Respiratory: no respiratory distress, no rales or rhonchi, clear to auscultation Gastrointestinal: normoactive bowel sounds, distension, No tenderness, No guarding, No rebound Skin: no rashes or abrasions, no fluctuance, no induration Neurologic: AAOx3, sensation intact bilaterally Psychiatric: interacting appropriately, not anxious, not encephalopathic, thought process linear ICD10 Worksheet Patient Problems: Problems Problem Status Onset Partial small bowel obstruction Acute
[2017-06-18] MEDS: SODIUM CL NASAL 45 ML BTL EACHNARE PRN (20:27)
[2017-06-19] MEDS: DICYCLOMINE 10 MG CAP PO SCH ×3 (05:43→15:28)
[2017-06-19] MEDS ORDERED: cefOXitin SODIUM 2 GM in STERILE WATER INJ 21 ML IV ONE (08:00)
--- NOTE | 2017-06-19 08:00 | SOAPPROG ---
SOAP Progress Note Assessment/Plan: Assessment: 77 yo with partial SBO Gastrograffin went through to colon but has persistent dilated loops of small bowel and unable to tolerate food Slightly better today now that has been NPO for 24 hours Will go to OR for laparoscopy possible laparotomy ? Adhesion S: Still pain in upper abdomen but softer O: Distended but soft. Bowel sounds hyperactive CTAB RRR NOn toxic Plan: 06/16/17 11:01 06/18/17 15:37 06/19/17 07:59 Objective: Vital Signs Temp Pulse Resp BP Pulse Ox 36.5 C 96 18 150/89 H 90 L 06/18/17 22:12 06/18/17 22:12 06/18/17 22:12 06/18/17 22:12 06/18/17 22:12 Laboratory Results 06/17/17 04:25 06/19/17 04:16 06/18/17 06/19/17 06/20/17 05:59 05:59 05:59 Intake Total 1500 1000 Balance 1500 1000 ICD10 Worksheet Patient Problems: Problems Problem Status Onset Partial small bowel obstruction Acute
[2017-06-19] MEDS ORDERED: ONDANSETRON 4 MG/2 ML VIAL IVP PRN (08:37)
[2017-06-19] MEDS ORDERED: ALBUTEROL 3 ML DEYVIAL IH PRN (08:37)
[2017-06-19] MEDS ORDERED: HYDROmorphONE/DILAUDID 1 MG/ML INJ IVP PRN (08:37)
[2017-06-19] MEDS ORDERED: fentaNYL 100 MCG/2 ML INJ IVP PRN (08:37)
[2017-06-19] MEDS ORDERED: NALOXONE HCL 0.4 MG/ML INJ IVP PRN (08:37)
--- NOTE | 2017-06-19 08:37 | PDANEPAE ---
ANE History of Present Illness Laparoscopy for SBO ANE Past Medical History - Cardiovascular History Hx Hypertension: No Hx Arrhythmias: No - Pulmonary History Hx COPD: No Hx Asthma/Reactive Airway Disease: No Hx Oxygen in Use at Home: No Hx Sleep Apnea: No Sleep Apnea Screening Result - Last Documented: Positive - Endocrine History Hx Diabetes: No ANE Review of Systems Review of systems is: negative Review of Systems: - Exercise capacity Exercise capacity: >=4 METS ANE Patient History - Allergies Allergies/Adverse Reactions: Penicillins Allergy (Verified 06/18/17 15:09) Hives - Home Medications Home Medications: Alendronate Sodium [Fosamax 70 MG (RX)] 70 mg PO FR@0700 03/07/15 [Last Taken ] Amoxicillin Trihydrate [Amoxicillin] 1,000 mg PO AD PRN 06/09/17 [Last Taken Unknown] Atorvastatin Calcium [Lipitor 40 mg (*)] 40 mg PO DAILY@1230 06/09/17 [Last Taken 06/08/17] Calcium Carbonate [Oyster Shell Calcium 500 mg (*)] 1,500 mg PO DAILY 06/09/17 [ Last Taken 06/08/17] Citalopram [CeleXA] 20 mg PO DAILY 06/09/17 [Last Taken 06/08/17] Herbals/Supplements -Info Only 1 ea PO DAILY 06/09/17 [Last Taken Unknown] Loratadine [Claritin] 10 mg PO DAILY PRN 06/09/17 [Last Taken 06/08/17] Multivitamins [Multivitamin (*)] 1 each PO DAILY 06/09/17 [Last Taken 06/08/17] celeCOXIB [Celebrex (*)] 200 mg PO DAILY 06/09/17 [Last Taken 06/08/17] - NPO status NPO Since - Liquids (Date): 06/19/17 NPO Since - Liquids (Time): 00:00 NPO Since - Solids (Date): 06/19/17 NPO Since - Solids (Time): 00:00 - Smoking Hx Smoking Status: Never smoked - Alcohol Use Alcohol Use: None ANE Labs/Vital Signs - Labs Result Diagrams: 06/17/17 04:25 06/19/17 04:16 - Vital Signs Blood Pressure: 150/89 Heart Rate: 96 Respiratory Rate: 18 O2 Sat (%): 90 Height: 149.86 cm Weight: 49.895 kg ANE Physical Exam - Airway Neck exam: FROM Mallampati Score: Class 2 - Pulmonary Pulmonary: clear to auscultation - Cardiovascular Cardiovascular: regular rate and rhythym - ASA Status ASA Status: II ANE Anesthesia Plan Anesthesia Plan: general endotracheal anesthesia
[2017-06-19] MEDS ORDERED: fentaNYL 100 MCG/2 ML INJ ONE (08:41)
[2017-06-19] MEDS ORDERED: PROPOFOL 200 MG/20 ML VIAL ONE (08:41)
[2017-06-19] MEDS ORDERED: ROCURONIUM 50 MG/5 ML VIAL ONE (08:42)
[2017-06-19] MEDS ORDERED: RANITIDINE 50 MG/2 ML VIAL ONE (08:43)
[2017-06-19] MEDS ORDERED: ONDANSETRON 4 MG/2 ML VIAL ONE (08:43)
[2017-06-19] MEDS ORDERED: DEXAMETHASONE 4 MG/ML VIAL ONE (08:43)
[2017-06-19] MEDS ORDERED: BUPIVACAINE 0.5% 30 ML SDV ONE (08:53)
[2017-06-19] MEDS ORDERED: PHENYLEPHRINE HCL 100 MCG/ML SYR ONE (09:07)
[2017-06-19] MEDS ORDERED: SUGAMMADEX SODIUM 200 MG/2 ML VIAL IVP ONE (09:45)
--- NOTE | 2017-06-19 09:52 | POSTOPPROG ---
Post Op Note Date of Operation: 06/19/17 Surgeon: Alana Hunter Anesthesiologist: ousmane Anesthesia: GET(General Endotracheal) Pre-op Diagnosis: sbo Post-op Diagnosis: same Indication: 77 yo with sbo not improving Procedure: laparoscopy with roseann Findings: large adhesive band Inf/Abcess present in the surg proc area at time of surgery?: No Depth: Superfical (Skin SQ) EBL: Minimal Specimen(s): peritoneal fluid
--- NOTE | 2017-06-19 09:55 | POSTANESTH ---
Post Anesthetic Evaluation Cardiovascular Status: Normal, Stable Respiratory Status: Normal, Stable Level of Consciousness/Mental Status: Mildly Sleepy, Arousable Pain Control: Adequate, Prn Tx Ordered Nausea/Vomiting Control: Adequate, Prn Tx Ordered Complications Possibly Related to Anesthesia: None Noted
[2017-06-19] MEDS: CETIRIZINE 10 MG TAB PO SCH (11:11)
[2017-06-19] MEDS: CITALOPRAM 20 MG TAB PO SCH (11:11)
[2017-06-19] MEDS: CALCIUM CARBONATE 500 MG TAB PO SCH (11:11)
[2017-06-19] MEDS: MULTIVITAMINS 1 EACH TAB PO SCH (11:12)
[2017-06-19] MEDS: ENOXAPARIN 40 MG/0.4 ML SYR SC SCH (11:12)
[2017-06-19] MEDS: ATORVASTATIN CALCIUM 40 MG TAB PO SCH (11:43)
--- NOTE | 2017-06-19 16:11 | GOP ---
[f rep st] OPERATIVE REPORT DATE OF OPERATION: 06/19/2017 SURGEON: Alana Hunter MD ANESTHESIA: Low Ramírez DO, General. PREOPERATIVE DIAGNOSIS: Small bowel obstruction. POSTOPERATIVE DIAGNOSIS: Small bowel obstruction. PROCEDURE PERFORMED: Diagnostic laparoscopy with lysis of adhesions. FINDINGS: Adhesive band right lower quadrant SPECIMENS: Peritoneal fluid for culture. ESTIMATED BLOOD LOSS: 5 cc. INDICATIONS: The patient is a 77-year-old woman who was admitted to the hospital with a small-bowel obstruction. I performed a Gastrografin with small- bowel follow-through. Contrast reached her colon. However, when she tried solid food, her abdominal pain increased. I took her to the operating room, to see if there is an external cause. DESCRIPTION OF PROCEDURE: Patient was brought into the operating room, placed supine on the table. General anesthesia was administered. Her abdomen was prepped and draped in the usual sterile fashion. I infiltrated all sites with 0.5% Marcaine prior to making incisions. I made an incision at her umbilicus. I elevated it and I inserted the Veress needle. It passed the hanging drop test. Her abdomen insufflated easily to a pressure of 15 mmHg. I placed a 5 mm trocar with a camera at this site. There were no injuries from Veress needle placement. I explored her abdomen. There was peritoneal fluid in the left upper quadrant. In the right lower quadrant, she had several adhesions and there was an adhesion around a loop of bowel. I placed 2 additional 5 mm trocars under direct vision. I used the Harmonic to perform lysis of adhesions , and release the segment of bowel. There were some small amounts of ischemia within the mesentery, but the bowel appeared completely healthy. There were no additional areas of concern noted. I explored her abdomen again. I obtained a peritoneal fluid for culture. I removed the ports under direct vision, allowed the abdomen to desufflate. I closed the skin with 4-0 Monocryl. Dermabond applied. She was awakened in the operating room, extubated, transferred to PACU in stable condition. /[id number]/MODL MTDD
--- NOTE | 2017-06-19 16:14 | HOSPPROG ---
Hospitalist Progress Note Assessment/Plan: * SBO s/p NEERU (one large adhesive band) -advance diet per surgery * Open appy age 10 * Left adrenal adenoma -outpatient follow-up - repeat CT 6 months * Hyperlipidemia -continue statin Subjective: Doing great post surgery Objective: Vital Signs Temp Pulse Resp BP Pulse Ox 36.6 C 94 16 136/81 H 95 06/19/17 15:06 06/19/17 15:06 06/19/17 15:06 06/19/17 15:06 06/19/17 15:06 Microbiology 06/19/17 09:24 Gram Stain - Final Peritoneal Fluid - Other Laboratory Results 06/17/17 04:25 06/19/17 04:16 06/18/17 06/19/17 06/20/17 05:59 05:59 05:59 Intake Total 1500 1000 200 Balance 1500 1000 200 - Physical Exam Constitutional: no apparent distress, appears nourished, not in pain Cardiovascular: regular rate and rhythym, no murmur, rub, or gallop Respiratory: no respiratory distress, no rales or rhonchi, clear to auscultation Gastrointestinal: normoactive bowel sounds, soft, non-tender abdomen, no palpable masses Skin: no rashes or abrasions, no fluctuance, no induration Neurologic: AAOx3, sensation intact bilaterally Psychiatric: interacting appropriately, not anxious, not encephalopathic, thought process linear ICD10 Worksheet Patient Problems: Problems Problem Status Onset Partial small bowel obstruction Acute
--- NOTE | 2017-06-19 16:24 | ASMTCMCOM ---
CM Note CM Note Notes: Pt is s/p exploratory lap for SBO. Anticipate she will still d/c with no CM needs when medically cleared. Date Signed: 06/19/2017 04:23 PM Electronically Signed By:HEATHER Chowdhury
[2017-06-19] MEDS: SODIUM CL NASAL 45 ML BTL EACHNARE PRN (19:37)
[2017-06-20 05:22] LABS: PLATELET COUNT 305 10^3/uL (150-400)
[2017-06-20] MEDS ORDERED: POTASSIUM CL 10 MEQ TAB PO ONE (07:40)
[2017-06-20] MEDS: MULTIVITAMINS 1 EACH TAB PO SCH (08:27)
[2017-06-20] MEDS: SODIUM CL NASAL 45 ML BTL EACHNARE PRN (08:28)
[2017-06-20] MEDS: CETIRIZINE 10 MG TAB PO SCH (08:28)
[2017-06-20] MEDS: CITALOPRAM 20 MG TAB PO SCH (08:28)
[2017-06-20] MEDS: CALCIUM CARBONATE 500 MG TAB PO SCH (08:28)
[2017-06-20] MEDS: ENOXAPARIN 40 MG/0.4 ML SYR SC SCH (08:30)
--- NOTE | 2017-06-20 11:13 | HOSPPROG ---
Hospitalist Progress Note Assessment/Plan: 77 yo F w SBO pod 1 s/p NEERU SBO s/p NEERU (one large adhesive band) -advance diet per surgery Open appy age 10 Left adrenal adenoma -outpatient follow-up - repeat CT 6 months Hyperlipidemia -continue statin dispo: pending response to reg diet Subjective: case d/w dr chilel. tolerating po's. had liquid bm Objective: Vital Signs Temp Pulse Resp BP Pulse Ox 36.7 C 86 18 117/77 94 06/20/17 08:00 06/20/17 08:00 06/20/17 08:00 06/20/17 08:00 06/20/17 08:00 Microbiology 06/19/17 09:24 Gram Stain - Final Peritoneal Fluid - Other Laboratory Results 06/20/17 04:21 06/20/17 04:21 06/19/17 06/20/17 06/21/17 05:59 05:59 05:59 Intake Total 1000 400 Output Total 4 Balance 1000 396 - Physical Exam Constitutional: no apparent distress, appears nourished Eyes: PERRL, anicteric sclera Ears, Nose, Mouth, Throat: moist mucous membranes, hearing normal Cardiovascular: regular rate and rhythym, no murmur, rub, or gallop Respiratory: no respiratory distress, no rales or rhonchi Gastrointestinal: normoactive bowel sounds, soft, non-tender abdomen, other ( trocar sites c/d/i), No tenderness, No rebound, No distension Genitourinary: no bladder fullness, No escalona in urethra Skin: warm, normal color Musculoskeletal: full muscle strength, no muscle tenderness Neurologic: AAOx3 ICD10 Worksheet Patient Problems: Problems Problem Status Onset Partial small bowel obstruction Acute
--- NOTE | 2017-06-20 12:09 | SOAPPROG ---
SOAP Progress Note Assessment/Plan: Assessment/Plan: 77yo F POD#2 s/p diagnostic laparoscopy with lysis of adhesions for persistent partial SBO Tolerating clear liquids Advance diet as tolerated Passing flatus and having bowel movements Pain controlled Dispo: home soon when tolerating regular diet and full return of bowel function. Case discussed with Dr. Hunter. Discussed with XIOMY Johnson Patient was in bathroom - I will return for examination this afternoon Objective: Vital Signs Temp Pulse Resp BP Pulse Ox 36.7 C 86 18 117/77 94 06/20/17 08:00 06/20/17 08:00 06/20/17 08:00 06/20/17 08:00 06/20/17 08:00 Microbiology 06/19/17 09:24 Gram Stain - Final Peritoneal Fluid - Other Laboratory Results 06/20/17 04:21 06/20/17 04:21 06/19/17 06/20/17 06/21/17 05:59 05:59 05:59 Intake Total 1000 400 Output Total 4 Balance 1000 396 ICD10 Worksheet Patient Problems: Problems Problem Status Onset Partial small bowel obstruction Acute
[2017-06-20] MEDS: ATORVASTATIN CALCIUM 40 MG TAB PO SCH (15:01)
[2017-06-21 07:13] VITALS: BP 139/91
--- NOTE | 2017-06-21 08:39 | SOAPPROG ---
SOAP Progress Note Assessment/Plan: Assessment/Plan: 77yo F POD s/p diagnostic laparoscopy with lysis of adhesions for persistent partial SBO Regular diet Passing flatus and having bowel movements Pain controlled Dispo: home today. Seen with Dr. Hunter S: no complaints this morning. distension resolved. pain controlled. having bowel movements O: lying in bed, comfortable,NAD No increase WOB Abd soft, nondistended, nontender. active bowel sounds. incisions cdi Objective: Vital Signs Temp Pulse Resp BP Pulse Ox 36.7 C 86 18 139/91 H 93 06/21/17 07:12 06/21/17 07:12 06/21/17 07:12 06/21/17 07:12 06/21/17 07:12 Microbiology 06/19/17 09:24 Gram Stain - Final Peritoneal Fluid - Other Laboratory Results 06/20/17 04:21 06/20/17 04:21 06/20/17 06/21/17 06/22/17 05:59 05:59 05:59 Intake Total 400 500 Output Total 4 Balance 396 500 ICD10 Worksheet Patient Problems: Problems Problem Status Onset Partial small bowel obstruction Acute
[2017-06-21] MEDS: CITALOPRAM 20 MG TAB PO SCH (08:51)
[2017-06-21] MEDS: MULTIVITAMINS 1 EACH TAB PO SCH (08:51)
[2017-06-21] MEDS: CETIRIZINE 10 MG TAB PO SCH (08:51)
[2017-06-21] MEDS: ENOXAPARIN 40 MG/0.4 ML SYR SC SCH (08:52)
[2017-06-21] MEDS: CALCIUM CARBONATE 500 MG TAB PO SCH (08:52)
--- NOTE | 2017-06-21 08:56 | HOSPPROG ---
Hospitalist Progress Note Assessment/Plan: 77 yo F w SBO pod 1 s/p NEERU SBO s/p NEERU (one large adhesive band) -advance diet per surgery Open appy age 10 Left adrenal adenoma -outpatient follow-up - repeat CT 6 months Hyperlipidemia -continue statin dispo: home today > 30 minutes on dc Subjective: eating. really ready for dc Objective: Vital Signs Temp Pulse Resp BP Pulse Ox 36.7 C 86 18 139/91 H 93 06/21/17 07:12 06/21/17 07:12 06/21/17 07:12 06/21/17 07:12 06/21/17 07:12 Microbiology 06/19/17 09:24 Gram Stain - Final Peritoneal Fluid - Other Laboratory Results 06/20/17 04:21 06/20/17 04:21 06/20/17 06/21/17 06/22/17 05:59 05:59 05:59 Intake Total 400 500 Output Total 4 Balance 396 500 - Physical Exam Constitutional: no apparent distress, appears nourished Eyes: PERRL, anicteric sclera Ears, Nose, Mouth, Throat: moist mucous membranes, hearing normal Cardiovascular: regular rate and rhythym, no murmur, rub, or gallop Respiratory: no respiratory distress, no rales or rhonchi Gastrointestinal: normoactive bowel sounds, soft, non-tender abdomen Genitourinary: no bladder fullness, No escalona in urethra Skin: warm, normal color Musculoskeletal: full muscle strength Neurologic: AAOx3 ICD10 Worksheet Patient Problems: Problems Problem Status Onset Partial small bowel obstruction Acute
--- NOTE | 2017-06-21 17:27 | GDS ---
[f rep st] DISCHARGE SUMMARY DISCHARGE DIAGNOSES: 1. Small bowel obstruction, status postoperative lysis of adhesions. 2. Adrenal adenoma. Please see admission history and physical by Dr. Bert Olvera. The patient presented with abdomina l pain with a dilated small bowel seen on abdominal imaging. The patient had open appendectomy at ag e 10 as a risk factor. This was in the 1950s. The patient was followed clinically with an NG tube a nd ultimately underwent operative reduction on June 20. She had rapid return of bowel function wit h hunger and tolerance of oral's. She is discharged home on a clear liquid diet. /[id number]/MODL
== END 2017-06-21 11:35 | disposition home or self-care (01) | DRG 337 ==
LOC: CED 02:42 → CEDHOLD 04:55 → F3N 08:37 → OBSVTOIN 06-10 15:30 → F3E 06-15 10:46
PROVIDERS: ADMIT Student in an Organized Health Care Education/Training Program; ATTEND Student in an Organized Health Care Education/Training Program
PROC: 0DN84ZZ Release Small Intestine, Percutaneous Endoscopic Approach (ICD-10-PCS; principal; 2017-06-19 08:00)
DX: K56.51 Intestinal adhesions [bands], with partial obstruction (principal); D35.02 Benign neoplasm of left adrenal gland; E78.5 Hyperlipidemia, unspecified; M81.0 Age-related osteoporosis without current pathological fracture; M25.512 Pain in left shoulder; Z86.010 Personal history of colon polyps
CPT/HCPCS: 71046-PO; 74177-PO; 80048-PO; 80076-PO; 81003-PO; 81015-PO; 83605-PO; 83690-PO; 83735-PO; 84100-PO; 84484-PO; 85025-PO; 96374; 97161-GP; 97165-GO; G0378; G8978-GP-CI; G8979-GP-CI; G8980-GP-CI; G8987-GO-CI; G8988-GO-CH; G8989-GO-CH; J0694; J1100; J1170; J1650; J2060; J2270; J2370; J2405; J2550; J2704; J2765; J2780; J3010; J3480; Q9967